=== PATIENT | male | born 1980 | race Hispanic/Latino ===

== ENCOUNTER 2018-02-19 03:28 | Emergency (ER) | payer SELFPAY ==
[~2018-02-19] VITALS: Ht 170.2 cm; Wt 68.0 kg
== END 2018-02-19 04:45 | disposition home or self-care (01) ==
LOC: FSED 03:28
DX: S52.202A Unspecified fracture of shaft of left ulna, initial encounter for closed fracture (principal); V80.010A Animal-rider injured by fall from or being thrown from horse in noncollision accident, initial encounter; Y93.52 Activity, horseback riding; Y92.89 Other specified places as the place of occurrence of the external cause
CPT/HCPCS: 99284